=== PATIENT | female | born 1995 | race Caucasian/White ===

== ENCOUNTER 2018-05-05 20:15 | Emergency (ER) | payer MEDICAID ==
[~2018-05-05 20:15] MED LIST: Sodium Chloride 0.9% 1,000 ML BAG ONE
[2018-05-05] MEDS ORDERED: Morphine 4 MG/ML VIAL ONE ×2 (21:37→22:28)
[2018-05-05] MEDS ORDERED: Ondansetron HCl/PF 4 MG/2 ML Vial ONE (21:37)
[2018-05-05 22:02] LABS: #Basophils 0.1 thou/uL (0.0-0.2); #Eosinphils 0.1 thou/uL (0.0-0.7); #Lymphocytes 1.8 thou/uL (1.20-3.40); #Monocytes 0.8 thou/uL (0.11-0.59); #Neutrophils 10.7 thou/uL (1.40-6.50); %Basophils 0.6 % (0.0-1.0); %Eosinophils 0.5 % (0.0-10.0); %Lymphocytes 13.1 % (21.0-51.0); %Monocytes 5.8 % (0.0-10.0); %Neutrophils 79.9 % (42.0-75.0); BHCG - Serum Negative (NEGATIVE); Hemoglobin 14.2 g/dL (12.0-16.0); Mean Corpuscular HGB CONC 34.3 g/dL (32.0-36.0); Mean Corpuscular Hemoglobin 30.2 pg (27.0-31.0); Mean Corpuscular Volume 88.1 fL (78.0-98.0); Mean Platelet Volume 8.7 fL (7.4-10.4); Platelet Count 255 thou/uL (130-400); Pregs Control Background? CLEAR/WHITE (CLR/WHITE); Pregs Control Bar Appear? YES (CONTROL BAR); RBC Distribution Width 11.9 % (11.5-14.5); White Blood Cell (WBC) Count 13.4 thou/uL (4.8-10.8)
[2018-05-05 22:14] LABS: ALT (SGPT) 88 U/L (8-55); AST (SGOT) 25 U/L (5-34); Albumin 4.1 g/dL (3.5-5.0); Alkaline Phosphatase 46 U/L (40-150); Anion Gap 16 mmol/L (10-20); BUN (Urea Nitrogen) 13 mg/dL (7.0-18.7); Bilirubin, Total 0.2 mg/dL (0.2-1.2); Calc. Creatinine Clearance 0 mL/min (70-130); Calcium 9.1 mg/dL (7.8-10.44); Carbon Dioxide 22 mmol/L (22-29); Chloride 106 mmol/L (98-107); Estimated GFR-MDRD Greater than 90; Globulin 3.1 g/dL (2.4-3.5); Glucose 100 mg/dL (70-105); Lipase 11 U/L (8-78); Potassium 3.6 mmol/L (3.5-5.1); Protein, Total 7.2 g/dL (6.0-8.3); Sodium 140 mmol/L (136-145)
[2018-05-05 22:30] LABS: Bilirubin Small (Negative); Blood, Urine Negative (Negative); Clarity Slightly Cloudy (Clear); Glucose, Urine (Dipstick) Negative (Negative); Leukocyte Negative (Negative); Nitrite Negative (Negative); Protein, Urine (Dipstick) 30 mg/dL (Neg-Trace)
[2018-05-05 22:32] LABS: Bacteria/HPF Rare-Few HPF (None Seen); RBC/HPF 0-3 HPF (0-3); Specific Gravity, Urine 1.033 (1.002-1.036)
[2018-05-05 22:33] LABS: Crystals/HPF 1+ AMORPH URATES HPF (Negative)
== END 2018-05-05 22:55 | disposition short-term general hospital (02) ==
LOC: MADERS 20:15
DX: D72.829 Elevated white blood cell count, unspecified (principal); R10.13 Epigastric pain; F17.210 Nicotine dependence, cigarettes, uncomplicated
CPT/HCPCS: 36415; 80053; 81003; 81015; 83690; 84703; 85025; 96361; 96374; 96375; J2270; J2405; J7050

== ENCOUNTER 2019-03-11 04:46 | Emergency (ER) | payer MEDICAID, SELFPAY ==
[2019-03-11] MEDS ORDERED: Morphine 4 MG/ML VIAL ONE (05:49)
[2019-03-11] MEDS ORDERED: Sodium Chloride 0.9% 1,000 ML ONE (05:51)
[2019-03-11] MEDS ORDERED: Ondansetron PF 4 MG/2 ML Vial ONE (05:51)
[2019-03-11] MEDS ORDERED: Clindamycin/D5W 600 mg/50 ml Premix Bag ONE (05:51)
[2019-03-11 05:53] LABS: #Basophils 0.2 thou/uL (0.0-0.2); #Eosinphils 0.1 thou/uL (0.0-0.7); #Lymphocytes 1.6 thou/uL (1.20-3.40); #Neutrophils 14.6 thou/uL (1.40-6.50); %Eosinophils 0.6 % (0.0-10.0); %Monocytes 5.4 % (0.0-10.0); Hemoglobin 15.5 g/dL (12.0-16.0); Mean Corpuscular HGB CONC 32.9 g/dL (32.0-36.0); Mean Corpuscular Hemoglobin 29.5 pg (27.0-31.0); Mean Corpuscular Volume 89.7 fL (78.0-98.0); Mean Platelet Volume 8.2 fL (7.4-10.4); Platelet Count 291 thou/uL (130-400); RBC Distribution Width 12.7 % (11.5-14.5); Red Blood Cell (RBC) Count 5.25 mill/uL (4.20-5.40); White Blood Cell (WBC) Count 17.4 thou/uL (4.8-10.8)
[2019-03-11 05:59] LABS: BHCG - Serum Negative (NEGATIVE); Pregs Control Background? CLEAR/WHITE (CLR/WHITE); Pregs Control Bar Appear? YES (CONTROL BAR)
[2019-03-11] MEDS ORDERED: Sodium Chloride 0.9% 1,000 ML BAG ONE (06:06)
[2019-03-11 06:09] LABS: ALT (SGPT) 73 U/L (8-55); AST (SGOT) 33 U/L (5-34); Albumin 4.2 g/dL (3.5-5.0); Alkaline Phosphatase 70 U/L (40-150); Anion Gap 16 mmol/L (10-20); BUN (Urea Nitrogen) 8 mg/dL (7.0-18.7); Bilirubin, Total 0.4 mg/dL (0.2-1.2); Calc. Creatinine Clearance 0 mL/min (70-130); Calcium 8.9 mg/dL (7.8-10.44); Carbon Dioxide 20 mmol/L (22-29); Chloride 105 mmol/L (98-107); Estimated GFR-MDRD 87; Globulin 3.7 g/dL (2.4-3.5); Glucose 98 mg/dL (70-105); Potassium 4.1 mmol/L (3.5-5.1); Protein, Total 7.9 g/dL (6.0-8.3); Sodium 137 mmol/L (136-145)
--- NOTE | 2019-03-11 07:17 | CT ---
CT FACE WITH IV CONTRAST: Date: 03/11/19 INDICATION: History of facial swelling and pain. COMPARISON: None. FINDINGS: No definite drainable fluid collection is seen within the soft tissues of the face. There are a few s hotty appearing lymph nodes seen within the submandibular regions bilaterally. None are pathologicall y enlarged based on size criteria. There is a mildly prominent left Level IIA lymph node measuring 1. 3 cm. The visualized parotid and submandibular glands are normal appearing. The formulation chemist space is n ormal appearing. Visualized orbits are normal appearing. Visualized intracranial contents are normal appearing. There is mild periapical lucency involving the second posterior right mandibular molar whi ch is suspicious for dental caries with periodontal disease. No acute fracture is evident. IMPRESSION: Dental minal with periodontal disease involving a right posterior mandibular molar. This is the secon d molar from the most posterior right mandibular molar that is present. No definite drainable fluid c ollection is grossly evident. There are a few shotty appearing lymph nodes seen within the upper neck bilaterally which may be reactive in nature. Dental referral is recommended. POS: [facility]
[2019-03-11] MEDS ORDERED: Iopamidol 370 76% 100 ML VIAL ONE (10:00)
== END 2019-03-11 07:30 | disposition home or self-care (01) ==
LOC: MADERS 04:46
DX: K05.6 Periodontal disease, unspecified (principal); F17.210 Nicotine dependence, cigarettes, uncomplicated; E78.00 Pure hypercholesterolemia, unspecified
CPT/HCPCS: 70487; 80053; 83605; 84703; 85025; 96365; 96375; J2270; J2405; J3490; J7050; Q9967

== ENCOUNTER 2019-06-04 06:01 | Emergency (ER) | payer SELFPAY | END 2019-06-04 06:33 | disposition home or self-care (01) | LOC: MADERS 06:01 | DX: K02.9 Dental caries, unspecified (principal); E78.00 Pure hypercholesterolemia, unspecified; F17.210 Nicotine dependence, cigarettes, uncomplicated | CPT/HCPCS: 99406 ==

== ENCOUNTER 2020-08-12 00:03 | Emergency (ER) | payer MEDICAID, SELFPAY ==
[2020-08-12 18:16] LABS: SARS-CoV-2 MS2 Positive; SARS-CoV-2 N Gene Negative; SARS-CoV-2 S Gene Negative; SARS-CoV-2 by NAA Not Detected (NotDetected); SARS-CoV-2 orf1ab Negative
== END 2020-08-12 01:19 | disposition home or self-care (01) ==
LOC: MADERS 00:03
DX: J06.9 Acute upper respiratory infection, unspecified (principal); Z20.828 Contact with and (suspected) exposure to other viral communicable diseases; F17.210 Nicotine dependence, cigarettes, uncomplicated
CPT/HCPCS: 87635; 87804; 99283; U0003